=== PATIENT | female | born 1990 | race Caucasian/White ===

== ENCOUNTER 2018-09-22 22:49 | Emergency (ER) | payer SELFPAY | END 2018-09-23 00:17 | disposition left against medical advice (07) | LOC: ED 22:49 | DX: Z53.21 Procedure and treatment not carried out due to patient leaving prior to being seen by health care provider (principal) ==

== ENCOUNTER 2018-09-30 18:19 | Emergency (ER) | payer SELFPAY ==
[~2018-09-30] VITALS: Ht 160 cm; Wt 62.1 kg
[2018-09-30 18:26] VITALS: Ht 160 cm; Wt 62.1 kg
[2018-09-30 22:00] VITALS: BP 133/82
== END 2018-09-30 22:00 | disposition home or self-care (01) ==
LOC: ED 18:19
DX: R10.13 Epigastric pain (principal); M54.5 Low back pain; R11.2 Nausea with vomiting, unspecified
CPT/HCPCS: J1885